=== PATIENT | female | born 1995 | race Caucasian/White ===

== ENCOUNTER 2017-10-03 21:22 | Emergency (ER) | payer SELFPAY ==
[~2017-10-03] VITALS: Ht 157.5 cm; Wt 81.6 kg
[~2017-10-03 21:22] MED LIST: AZIT-21 PO
[2017-10-03 22:07] LABS: BILIRUBIN,URINE NEGATIVE (NEGATIVE); CLARITY,URINE CLEAR; COLOR,URINE YELLOW; GLUCOSE, URINE (UA) NEGATIVE (NEGATIVE); KETONES,URINE NEGATIVE (NEGATIVE); LEUKOCYTE ESTERASE ,URINE 1+ (NEGATIVE); NITRITE,URINE NEGATIVE (NEGATIVE); PH,URINE 6 (5-9); PROTEIN,URINE 1+ (NEGATIVE); UROBILINOGEN,URINE NORMAL (NORMAL)
[2017-10-03 22:09] LABS: BASOPHILS # (AUTO) 0.1 10^3/uL (0.0-0.1); BASOPHILS % (AUTO) 0 % (0-10); EOSINOPHILS # (AUTO) 0.2 10^3/uL (0.0-0.3); EOSINOPHILS % (AUTO) 1 % (0-10); HEMATOCRIT 41 % (35-52); HEMOGLOBIN 13.8 G/DL (11.5-16.0); LYMPHOCYTES # (AUTO) 3.6 X 10^3 (1.0-4.0); LYMPHOCYTES % (AUTO) 29 % (12-44); MEAN CORPUSCULAR HEMOGLOBIN 28 PG (25-34); MEAN CORPUSCULAR HGB CONC 33 G/DL (32-36); MEAN CORPUSCULAR VOLUME 84 FL (80-99); MEAN PLATELET VOLUME 11.2 FL (7.4-10.4); MONOCYTES # (AUTO) 0.4 X 10^3 (0.0-1.0); MONOCYTES % (AUTO) 3 % (0-12); NEUTROPHILS # (AUTO) 8.5 X 10^3 (1.8-7.8); NEUTROPHILS % (AUTO) 66 % (42-75); PLATELET COUNT 303 10^3/uL (130-400); RED BLOOD COUNT 4.95 10^6/uL (4.35-5.85); WHITE BLOOD COUNT 12.8 10^3/uL (4.3-11.0)
[2017-10-03 22:20] LABS: ALANINE AMINOTRANSFERASE 15 U/L (0-55); ALBUMIN 4.3 GM/DL (3.2-4.5); ALKALINE PHOSPHATASE 56 U/L (40-136); BILIRUBIN,TOTAL 0.3 MG/DL (0.1-1.0); BUN/CREATININE RATIO 17; CALCIUM 9.8 MG/DL (8.5-10.1); CARBON DIOXIDE 19 MMOL/L (21-32); CHLORIDE 104 MMOL/L (98-107); CREATININE SERUM 0.78 MG/DL (0.60-1.30); GFR ESTIMATED > 60; GLUCOSE 163 MG/DL (70-105); POTASSIUM 3.6 MMOL/L (3.6-5.0); SALICYLATE < 5.0 MG/DL (5.0-20.0); SODIUM 138 MMOL/L (135-145); TOTAL PROTEIN 7.6 GM/DL (6.4-8.2)
[2017-10-03 22:22] LABS: ACETAMINOPHEN < 10 UG/ML (10-30)
[2017-10-03 22:23] LABS: AMPHETAMINE SCREEN, URINE NEGATIVE (NEGATIVE); BARBITURATE SCREEN URINE NEGATIVE (NEGATIVE); BENZODIAZEPINES SCREEN URINE NEGATIVE (NEGATIVE); CANNABINOID SCREEN, URINE POSITIVE (NEGATIVE); COCAINE SCREEN URINE NEGATIVE (NEGATIVE); HCG,QUALITATIVE URINE NEGATIVE (NEGATIVE); METHADONE STAT NEGATIVE (NEGATIVE); METHAMPHETAMINE SCREEN URINE S NEGATIVE (NEGATIVE); OPIATE SCREEN URINE NEGATIVE (NEGATIVE); OXYCODONE STAT NEGATIVE (NEGATIVE); PROPOXYPHENE STAT NEGATIVE (NEGATIVE); TRICYCLIC ANTIDEPRESSANTS SCRE NEGATIVE (NEGATIVE)
--- NOTE | 2017-10-03 22:51 | ED Psychosocial ---
General Chief Complaint: Psych/Social Disorder Stated Complaint: MENTAL HEALTH ISSUES/PSYCH EVAL Nursing Triage Note: pt states that she has wished to "shoot herself in the head" for the last 2 weeks. States she has not carried it out because she does not have access to a gun. Pt states nothing out of the ordinary has happened but her mother states that she has had a failed relationship and a failed out of town trip. Pt states she broke up with S/O on a trip to [facility] on Sep 28. Mother states that she has difficulty living on own and she freq moves back home which is where she is living now. She does not have a mental health dr and does not take meds. Was hospitalized at 18 in [place] for similar issues and self cutting. Was on antidepressants then but was not compliant taking them and stopped them shortly after that. Source: patient, family Exam Limitations: no limitations History of Present Illness Time seen by provider: 22:39 Initial Comments 22-year-old female patient presents to the emergency department with complaints of suicidal ideation. Reports to nursing staff that she wished to "shoot herself in the head". Reports if she had access to it and she would follow through with the plan. Patient refuses to elaborate on having a plan in place. Mother states she is very concerned about the patient's safety. Reports recently breaking up with her boyfriend and moving back in with her mother. Patient does have a history of suicidal ideation and was previously on antidepressants at the age of 18. Only took them for short time. Timing/Duration: other (2 wks) Associated Symptoms: anxiety, impaired concentration, suicidal ideation Allergies and Home Medications Allergies Coded Allergies: No Known Drug Allergies (Unverified , 07/26/14) Home Medications Azithromycin 250 Mg Tab, 1 TAB PO DAILY, #4 Prescribed by: PRISCILLA NEGRETE on 07/26/14 0146 Constitutional: no symptoms reported Respiratory: no symptoms reported Cardiovascular: no symptoms reported Gastrointestinal: no symptoms reported Genitourinary: no symptoms reported Musculoskeletal: no symptoms reported Skin: no symptoms reported Psychiatric/Neurological: See HPI, Depressed, Denies Headache, Denies Numbness , Denies Paresthesia, Denies Seizure, Denies Tingling, Denies Weakness All Other Systems Reviewed Negative Unless Noted: Yes (Negative excepted noted.) Past Zaoofsw-Lkkefj-Svhums Hx Patient Social History Alcohol Use: Rarely Uses Recreational Drug Use: Yes Drug of Choice: THC Smoking Status: Current Everyday Smoker Type Used: Cigarettes 2nd Hand Smoke Exposure: No Recent Foreign Travel: No Contact w/Someone Who Travel: No Recent Infectious Disease Expo: No Physical Abuse: No Sexual Abuse: No Mistreated: No Fear: No Immunizations Up To Date Tetanus Booster (TDap): Unknown Seasonal Allergies Seasonal Allergies: No Surgeries History of Surgeries: Yes (skin and sweat glands removed from axilla and groin) Respiratory History of Respiratory Disorde: No Cardiovascular History of Cardiac Disorders: No Neurological History of Neurological Disord: No Gastrointestinal History of Gastrointestinal Di: No Musculoskeletal History of Musculoskeletal Dis: No Endocrine History of Endocrine Disorders: No Cancer History of Cancer: No Psychosocial History of Psychiatric Problem: Yes Behavioral Health Disorders: Anxiety, Depression Suicide Risk Score: 8 Integumentary History of Skin 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) Blood Transfusions History of Blood Disorders: No Reviewed Nursing Assessment Reviewed/Agree w Nursing PMH: Yes Family Medical History Significant Family History: No Pertinent Family Hx Physical Exam Vital Signs Vital Sign - Last 12Hours 10/03/17 21:28 Temp 98.1 Pulse 81 Resp 18 B/P (MAP) 130/83 (99) Pulse Ox 97 Capillary Refill : Less Than 3 Seconds General Appearance: WD/WN, no apparent distress HEENT: PERRL/EOMI, normal ENT inspection, TMs normal, pharynx normal Neck: supple, normal inspection Respiratory: lungs clear, normal breath sounds, no respiratory distress, no accessory muscle use Cardiovascular: normal peripheral pulses, regular rate, rhythm, no murmur Gastrointestinal: normal bowel sounds, non tender, soft, no organomegaly Extremities: no pedal edema, normal capillary refill Neurologic/Psychiatric: asbestos microscopist II-XII nml as tested, no motor/sensory deficits, alert, oriented x 3, depressed affect Appearance/Memory: appropriate appearance, appropriate insight, neat, no memory impairment Behavior/Eye Contact: cooperative, normal speech, avoids eye contact Thoughts/Hallucinations: normal thought pattern, no apparent hallucination Skin: normal color, warm/dry Progress/Results/Core Measures Results/Orders Lab Results Laboratory Tests Test 10/03/17 21:40 Range/Units White Blood Count 12.8 H 4.3-11.0 10^3/uL Red Blood Count 4.95 4.35-5.85 10^6/uL Hemoglobin 13.8 11.5-16.0 G/DL Hematocrit 41 35-52 % Mean Corpuscular Volume 84 80-99 FL Mean Corpuscular Hemoglobin 28 25-34 PG Mean Corpuscular Hemoglobin Concent 33 32-36 G/DL Red Cell Distribution Width 14.0 10.0-14.5 % Platelet Count 303 130-400 10^3/uL Mean Platelet Volume 11.2 H 7.4-10.4 FL Neutrophils (%) (Auto) 66 42-75 % Lymphocytes (%) (Auto) 29 12-44 % Monocytes (%) (Auto) 3 0-12 % Eosinophils (%) (Auto) 1 0-10 % Basophils (%) (Auto) 0 0-10 % Neutrophils # (Auto) 8.5 H 1.8-7.8 X 10^3 Lymphocytes # (Auto) 3.6 1.0-4.0 X 10^3 Monocytes # (Auto) 0.4 0.0-1.0 X 10^3 Eosinophils # (Auto) 0.2 0.0-0.3 10^3/uL Basophils # (Auto) 0.1 0.0-0.1 10^3/uL Urine Color YELLOW Urine Clarity CLEAR Urine pH 6 5-9 Urine Specific [place] 1.020 1.016-1.022 Urine Protein 1+ H NEGATIVE Urine Glucose (UA) NEGATIVE NEGATIVE Urine Ketones NEGATIVE NEGATIVE Urine Nitrite NEGATIVE NEGATIVE Urine Bilirubin NEGATIVE NEGATIVE Urine Urobilinogen NORMAL NORMAL MG/DL Urine Leukocyte Esterase 1+ H NEGATIVE Urine RBC (Auto) 2+ H NEGATIVE Urine RBC 5-10 H /HPF Urine WBC 2-5 /HPF Urine Squamous Epithelial Cells 10-25 H /HPF Urine Crystals NONE /LPF Urine Bacteria NONE /HPF Urine Casts NONE /LPF Urine Mucus SMALL H /LPF Urine Culture Indicated NO Urine Test NEGATIVE NEGATIVE Sodium Level 138 135-145 MMOL/L Potassium Level 3.6 3.6-5.0 MMOL/L Chloride Level 104 98-107 MMOL/L Carbon Dioxide Level 19 L 21-32 MMOL/L Anion Gap 15 H 5-14 MMOL/L Blood Urea Nitrogen 13 7-18 MG/DL Creatinine 0.78 0.60-1.30 MG/DL Estimat Glomerular Filtration Rate > 60 BUN/Creatinine Ratio 17 Glucose Level 163 H 70-105 MG/DL Calcium Level 9.8 8.5-10.1 MG/DL Total Bilirubin 0.3 0.1-1.0 MG/DL Aspartate Amino Transf (AST/SGOT) 14 5-34 U/L Alanine Aminotransferase (ALT/SGPT) 15 0-55 U/L Alkaline Phosphatase 56 40-136 U/L Total Protein 7.6 6.4-8.2 GM/DL Albumin 4.3 3.2-4.5 GM/DL [facility] Testing 0.66 0.35-4.94 UIU/ML Salicylates Level < 5.0 L 5.0-20.0 MG/DL Urine Opiates Screen NEGATIVE NEGATIVE Urine Oxycodone Screen NEGATIVE NEGATIVE Urine Methadone Screen NEGATIVE NEGATIVE Urine Propoxyphene Screen NEGATIVE NEGATIVE Acetaminophen Level < 10 L 10-30 UG/ML Urine Barbiturates Screen NEGATIVE NEGATIVE Ur Tricyclic Antidepressants Screen NEGATIVE NEGATIVE Urine Phencyclidine Screen NEGATIVE NEGATIVE Urine Amphetamines Screen NEGATIVE NEGATIVE Urine Methamphetamines Screen NEGATIVE NEGATIVE Urine Benzodiazepines Screen NEGATIVE NEGATIVE Urine Cocaine Screen NEGATIVE NEGATIVE Urine Cannabinoids Screen POSITIVE H NEGATIVE Serum Alcohol < 10 <10 MG/DL My Orders Orders - AMANDA BIGGS Ua Culture If Indicated (10/03/17 21:59) Cbc With Automated Diff (10/03/17 21:59) Comprehensive Metabolic Panel (10/03/17 21:59) Alcohol (10/03/17 21:59) Drug Screen Stat (Urine) (10/03/17 21:59) Acetaminophen (10/03/17 21:59) Salicylate (10/03/17 21:59) Ekg Tracing (10/03/17 21:59) Hcg,Qualitative Urine (10/03/17 21:59) Thyroid Analyzer (10/03/17 21:59) Vital Signs/I&O Vital Sign - Last 12Hours 10/03/17 21:28 Temp 98.1 Pulse 81 Resp 18 B/P (MAP) 130/83 (99) Pulse Ox 97 Blood Pressure Mean: 99 ECG Initial ECG Impression Date: Oct 03, 2017 Initial ECG Impression Time: 22:54 Initial ECG Rate: 90 Initial ECG Rhythm: Normal Sinus Initial ECG Intervals: Normal Initial ECG Impression: Normal Initial ECG Comparisson: No Previous ECG Available Comment reviewed with Dr. Bush. Departure Communication (Admissions) Progress Notes Laboratory findings and plan for transfer discussed with the patient. Patient verbalizes understanding and agrees with the treatment plan. Patient case discussed with Dr. Bush, he agrees with the plan of care. Impression Impression: Primary Impression: Depression with suicidal ideation Disposition: 65 XFER TO PSYCH HOSP/UNIT Condition: Stable Transfer Time Spoke to Accepting Phy: 23:[address] Vaughn graciously accepts patient to his inpatient behavioral health service. Transfer Time: 01:00 Transfer Facility: [facility] Method of Transfer: Veronika Correa Departure-Patient Inst. Referrals: NO,LOCAL PHYSICIAN (PCP/Family) Primary Care Physician AMANDA BIGGS Oct 03, 2017 22:51
[2017-10-04 01:25] VITALS: BP 105/55
== END 2017-10-04 01:25 ==
LOC: EDUNIT# 21:22 → ER 21:25
DX: R45.851 Suicidal ideations (principal); F32.9 Major depressive disorder, single episode, unspecified; F41.9 Anxiety disorder, unspecified; F12.10 Cannabis abuse, uncomplicated; F17.210 Nicotine dependence, cigarettes, uncomplicated
CPT/HCPCS: 36415; 80053; 80306; 80320; 80329; 81000; 84443; 84703; 85025; 93005

== ENCOUNTER 2019-11-08 15:00 | Inpatient (IN) | payer MEDICAID ==
[~2019-11-08] VITALS: Ht 157.5 cm; Wt 92.3 kg
[2019-11-08] VITALS (11 sets, daily range): BP systolic 120–139; BP diastolic 65–87
[2019-11-08] MEDS ORDERED: D5 LR IV SOLUTION 1,000 ML IV ONE (17:02)
[2019-11-08] MEDS: D5 LR IV SOLUTION 1,000 ML IV SCH (17:15)
[2019-11-08] MEDS ORDERED: ACYC400T PO (17:23)
[2019-11-08] MEDS ORDERED: PREN1TAB79 PO (17:23)
--- NOTE | 2019-11-08 17:23 | History & Physical-OB ---
OB - Chief Complaint & HPI Date/Time Date of Admission: Date of Admission: Date seen by a Provider: Nov 08, 2019 Time Seen by a Provider: 15:00 Chief Complaint/History OB-Reason for Admission/Chief: Onset of Labor Hx : 2 Hx Para: 0 Expected Date of Delivery: Nov 16, 2019 Gestational Age in Weeks: 38 Gestational Age in Days: 6 History of Labs A+, antibody neg, RI. HIV/hepB/RPR NR. GC/chlamydia neg. 1 hour glucola pos, 3 hour negative. GBS neg. History of HSV on acyclovir suppression. Allergies and Home Medications Allergies Coded Allergies: No Known Drug Allergies (Unverified , 07/26/14) Home Medications Acyclovir 400 Mg Tablet, 400 MG PO TID, (Reported) Vit W-Ca,Fe,FA(<1 mg) 1 Each Tablet, 1 EACH PO DAILY, (Reported) Patient Home Medication List Home Medication List Reviewed: Yes OB - History Hx of Present Ultrasounds: Normal mid trimester US Obstetrical History Hx : 2 Hx Para: 0 Hx Total # of Abortions (Spona: 1 Delivery History Hx Blood Disorders: No Patient Past Medical History PMHx: Hidradenitis suppurativa Herpes SurgHx: Abscess/sweat gland removal axilla and inguinal region Social History/Family History HIV/AIDS: No Recent Infectious Disease Expo: No Sexually Transmitted Disease: Yes (HSV) Alcohol Use: Denies Use Smoking Cessation: Current every day smoker 2nd Hand Smoke Exposure: No Immunizations Tetanus Booster (TDap): Less than 5yrs Rubella: immune RPR/VDRL: Negative GBS Status: Negative HBsAG: Negative OB - Admission Exam Physical Exam HEENT: NCAT Cervical Dilatation: 4cm Effacement: 100% Membranes: Intact Heart Rate: 140's Accelerations: Accelerations Present Decelerations: No Decelerations Short Term Variability: Present Long-Term Variability: Average (6-25) Contractions on Admission: < 5 Minutes Apart OB - Assessment/Plan/Diagnosis Assessment Assessment: active labor Admission Dx 38 weeks gestation Active labor history of herpes with no current lesions GBS negative Admission Status: Inpatient Order (span 2 midnights) Reason for Inpatient Admission: Labor, delivery and course Plan Plan: Expectant Management SAMMI KINNEY MD Nov 08, 2019 17:23
[2019-11-08] MEDS ORDERED: OXYTOCIN PRE-MIX DRIP 500 ML IV SCH (17:28)
[2019-11-08 17:46] LABS: BASOPHILS % (AUTO) 0 % (0-10); EOSINOPHILS # (AUTO) 0.1 10^3/uL (0.0-0.3); EOSINOPHILS % (AUTO) 1 % (0-10); HEMATOCRIT 35 % (35-52); HEMOGLOBIN 11.9 G/DL (11.5-16.0); LYMPHOCYTES # (AUTO) 2.7 X 10^3 (1.0-4.0); LYMPHOCYTES % (AUTO) 17 % (12-44); MEAN CORPUSCULAR HEMOGLOBIN 30 PG (25-34); MEAN CORPUSCULAR HGB CONC 34 G/DL (32-36); MEAN CORPUSCULAR VOLUME 87 FL (80-99); MEAN PLATELET VOLUME 12.2 FL (7.4-10.4); MONOCYTES # (AUTO) 1.1 X 10^3 (0.0-1.0); MONOCYTES % (AUTO) 7 % (0-12); NEUTROPHILS # (AUTO) 11.9 X 10^3 (1.8-7.8); NEUTROPHILS % (AUTO) 75 % (42-75); PLATELET COUNT 206 10^3/uL (130-400); RED CELL DISTRIBUTION WIDTH 13.8 % (10.0-14.5); WHITE BLOOD COUNT 15.9 10^3/uL (4.3-11.0)
[2019-11-08 18:21] LABS: BAND NEUTROPHILS 1 %; BASOPHILS % (MANUAL) 1 %; LYMPHOCYTES % (MANUAL) 17 %; MONOCYTES % (MANUAL) 6 %; NEUTROPHILS % (MANUAL) 75 %; RBC MORPH NORMAL
[2019-11-08] MEDS ORDERED: fentaNYL INJECTION 100 MCG/2 ML AMP ONE (18:36)
[2019-11-08] MEDS ORDERED: SUFENTA 0.6MCG/ML BUPIVA 0.125 100 ML ONE (18:53)
[2019-11-08] MEDS ORDERED: CATHETER FLUSH 10 ML SYR IV SCH (22:00)
[2019-11-09] VITALS (18 sets, daily range): BP systolic 91–156; BP diastolic 56–95
--- NOTE | 2019-11-09 00:50 | NUR ---
VE done. pt states she isn't feeling well. BP taken. See labor flow sheet. IVF bolus given. BP slowly starting to return to normal. SROM. clear fluid. No cervical change.
[2019-11-09] MEDS: D5 LR IV SOLUTION 1,000 ML IV SCH (01:58)
[2019-11-09] MEDS ORDERED: LIDOCAINE 1% INJ 20 ML 20 ML VIAL ONE (03:40)
[2019-11-09] MEDS ORDERED: MINERAL OIL CONCENTRATE 99.9% 15 ML UDC ONE (03:51)
--- NOTE | 2019-11-09 05:34 | NUR ---
Viable male infant born per spontaneous vaginal delivery. see notes. 0540-placenta delivered. Pitocin started.
[2019-11-09] MEDS: OXYTOCIN PRE-MIX DRIP 500 ML IV SCH ×2 (05:40→06:18)
--- NOTE | 2019-11-09 05:50 | NUR ---
Soeldad care done. fundus massaged. at umbilicus. Firm. small-moderate amount of bleeding noted.
--- NOTE | 2019-11-09 06:15 | NUR ---
Fundus firm. small amount of bleeding noted.
--- NOTE | 2019-11-09 06:29 | OB Labor & Delivery Record ---
Vag Delivery Note Vag Delivery Note Date of Delivery: 11/09/19 Preoperative Diagnosis: Tomi Kasper is a (24 /Para 2 / 0, Gestational Age (wks)39 Postoperative Diagnosis: Same Surgeon: SAMMI KINNEY Seed Cone Picker: Natividad Lobo [id number] Anesthesia: Epidural Delivery Type: Vacuum assisted vaginal delivery Findings: Viable male , apgars 8/9, weight 3260 Lacerations: first degree perineal Intact placenta with 3 vessel cord. Body cord x 1, no nuchal cord or shoulder dystocia Estimated Blood Loss: 350 ml Complications: None Condition: Stable Description of Procedure: The patient is a 24 year old female who presented in active labor. She was admitted and informed consent was obtained. Her labor course was unremarkable. She progressed to complete dilatation and began to push. She was then set up for delivery. Pushing was somewhat prolonged given favorable station, and s infant was near , began to have persistent bradycardia with slower return to baseline each contraction and was not delivering in spite of maternal pushing efforts, so Mity-Vac was applied, checked entire circumference to ensure no entrapped maternal tissue and pressure increased to 45 cm Hg. With the next contraction, in conjunction with maternal pushing, steady traction was applied along the access of the pelvic curve, while keeping stem perpendicular to the plane of the cup and the 's head was delivered with one maternal push/vacuum pull. The infant's head was delivered atraumatically in the OA position. The shoulders and remainder of the 's body were then delivered without difficulty. Upon delivery, the was placed on maternal abdomen. The cord was doubly clamped and cut and the infant was handed off to the pediatric staff. An intact placenta with 3-vessel cord delivered via Godwin and there was found to be minimal bleeding.~ Vigorous fundal massage was performed and the fundus was found to be firm. IV oxytocin was given. Examination of the vagina and perineum revealed a first degree perineal laceration repaired in the usual fashion with 3-0 vicryl rapide suture. Following the repair, sponge, instrument and needle counts were correct. Mom and baby were both in stable condition in the labor suite. Vitals - Labs Vital Signs - I&O Vital Signs Date Time Temp Pulse Resp B/P (MAP) Pulse Ox O2 Delivery O2 Flow Rate FiO2 11/09/19 02:15 89 18 119/80 (93) 99 11/09/19 01:45 85 18 121/80 (94) 99 11/09/19 01:15 94 18 91/56 (68) 99 11/09/19 00:45 82 18 119/78 (92) 97 11/09/19 00:15 86 18 127/69 (88) 98 11/08/19 23:45 87 20 130/87 (101) 98 11/08/19 23:15 86 20 120/66 (84) 98 11/08/19 22:45 85 20 123/65 (84) 98 11/08/19 22:15 81 20 124/69 (87) 98 11/08/19 21:45 84 20 125/85 (98) 98 11/08/19 21:15 85 20 123/75 (91) 98 11/08/19 20:45 82 20 130/77 (94) 99 11/08/19 20:15 97 20 128/71 (90) 99 11/08/19 19:45 82 20 130/74 (92) 94 11/08/19 19:15 93 20 127/74 (91) 98 11/08/19 15:20 37.1 104 20 139/81 (100) 99 Room Air Labs Laboratory Tests 11/08/19 17:15: White Blood Count 15.9H, Red Blood Count 4.02L, Hemoglobin 11.9, Hematocrit 35, Mean Corpuscular Volume 87, Mean Corpuscular Hemoglobin 30, Mean Corpuscular Hemoglobin Concent 34, Red Cell Distribution Width 13.8, Platelet Count 206, Mean Platelet Volume 12.2H, Neutrophils (%) (Auto) 75, Lymphocytes (%) (Auto) 17, Monocytes (%) (Auto) 7, Eosinophils (%) (Auto) 1, Basophils (%) (Auto) 0, Neutrophils # (Auto) 11.9H, Lymphocytes # (Auto) 2.7, Monocytes # (Auto) 1.1H, Eosinophils # (Auto) 0.1, Basophils # (Auto) 0.0, Neutrophils % (Manual) 75, Lymphocytes % (Manual) 17, Monocytes % (Manual) 6, Basophils % (Manual) 1, Band Neutrophils 1, Blood Morphology Comment NORMAL 11/08/19 17:50: SAMMI KINNEY MD Nov 09, 2019 06:29
[2019-11-09] MEDS ORDERED: WITCH HAZEL(TUCKS) 40 EA JAR TOP PRN (07:00)
[2019-11-09] MEDS ORDERED: BENZOCAINE/MENTHOL (DERMOPLAST) 60 ML CAN TP PRN (07:00)
--- NOTE | 2019-11-09 07:15 | NUR ---
report given to Nona NORWOOD
--- NOTE | 2019-11-09 08:30 | NUR ---
Pt has a skin condition. 5cm scabbed area on lt breast. no drainage no odor noted. pt finished course of antibiotics prior to this hospitalization. no c/o. Addendum: 11/09/19 at 1752 by LEAH WALKER RN Amended: Links added.
--- NOTE | 2019-11-09 09:16 | Anesthesia-Regional Post-Op ---
Regional Patient Condition Mental Status: Alert, Oriented x3 Circulation: Same as Pre-Op Headache: Absent Sensation: Full Recovery Motor Block: Absent Post Op Complications Complications None Follow Up Care/Instructions Patient Instructions None needed. Anesthesia/Patient Condition Patient is doing well, no complaints, stable vital signs, no apparent adverse anesthesia problems. No complications reported per nursing. PEDRO PABLO DA SILVA CRNA Nov 09, 2019 09:16
[2019-11-09] MEDS: PRENATAL VITAMIN 1 EA TAB PO SCH (10:05)
[2019-11-09] MEDS: DOCUSATE SODIUM 100 MG (COLACE) CAP PO SCH ×2 (10:06→21:05)
[2019-11-09] MEDS: IBUPROFEN 600 MG (MOTRIN) TAB PO SCH ×3 (10:06→23:05)
[2019-11-09] MEDS ORDERED: CATHETER FLUSH 10 ML SYR IV SCH (14:00)
[2019-11-10 04:50] VITALS: BP 121/77
[2019-11-10] MEDS: IBUPROFEN 600 MG (MOTRIN) TAB PO SCH ×2 (06:19→12:09)
[2019-11-10 06:29] LABS: BASOPHILS % (AUTO) 0 % (0-10); EOSINOPHILS # (AUTO) 0.2 10^3/uL (0.0-0.3); EOSINOPHILS % (AUTO) 1 % (0-10); HEMATOCRIT 32 % (35-52); HEMOGLOBIN 10.7 G/DL (11.5-16.0); LYMPHOCYTES # (AUTO) 2.2 X 10^3 (1.0-4.0); LYMPHOCYTES % (AUTO) 17 % (12-44); MEAN CORPUSCULAR HEMOGLOBIN 30 PG (25-34); MEAN CORPUSCULAR HGB CONC 33 G/DL (32-36); MEAN CORPUSCULAR VOLUME 89 FL (80-99); MEAN PLATELET VOLUME 12.5 FL (7.4-10.4); MONOCYTES # (AUTO) 1.1 X 10^3 (0.0-1.0); MONOCYTES % (AUTO) 8 % (0-12); NEUTROPHILS # (AUTO) 9.7 X 10^3 (1.8-7.8); NEUTROPHILS % (AUTO) 74 % (42-75); PLATELET COUNT 119 10^3/uL (130-400); RED CELL DISTRIBUTION WIDTH 13.8 % (10.0-14.5); WHITE BLOOD COUNT 13.1 10^3/uL (4.3-11.0)
--- NOTE | 2019-11-10 09:40 | NUR ---
To room for assessment, [id number] rough rounder here, will return for assessment later.
--- NOTE | 2019-11-10 09:50 | NUR ---
Dr. Edward here to see pt.
--- NOTE | 2019-11-10 10:15 | Discharge Summary ---
Discharge Summary Hospital Course Hospital Course Date of Admission: Nov 08, 2019 at 17:00 Admission Diagnosis : Family Physician/Provider: Sammi Edward MD Date of Discharge: 11/10/19 Discharge Diagnosis: s/p vacuum assisted vaginal delivery asymptomatic anemia Hospital Course: [ ] Labs and Pending Lab Test: Laboratory Tests 11/10/19 05:55: White Blood Count 13.1H, Red Blood Count 3.63L, Hemoglobin 10.7L, Hematocrit 32L , Mean Corpuscular Volume 89, Mean Corpuscular Hemoglobin 30, Mean Corpuscular Hemoglobin Concent 33, Red Cell Distribution Width 13.8, Platelet Count 119L, Mean Platelet Volume 12.5H, Neutrophils (%) (Auto) 74, Lymphocytes (%) (Auto) 17, Monocytes (%) (Auto) 8, Eosinophils (%) (Auto) 1, Basophils (%) (Auto) 0, Neutrophils # (Auto) 9.7H, Lymphocytes # (Auto) 2.2, Monocytes # (Auto) 1.1H, Eosinophils # (Auto) 0.2, Basophils # (Auto) 0.0 Home Meds Active Reported Vitamins ( Vit W-Ca,Fe,FA(<1 mg)) 1 Each Tablet 1 Each PO DAILY Acyclovir 400 Mg Tablet 400 Mg PO TID Assessment/Pt DC Instructions Follow up in 6 weeks for visit Discharge Diet: Regular Diet Activity as Tolerated: Yes (avoid strenuous acitivity x 2 weeks) Discharge Physical Examination Allergies: Coded Allergies: No Known Drug Allergies (Unverified , 07/26/14) General Appearance: No Apparent Distress Respiratory: Lungs Clear, Normal Breath Sounds Cardiovascular: Regular Rate, Rhythm, No Murmur Neurologic/Psychiatric: Alert, Normal Mood/Affect Clinical Quality Measures DVT/VTE Risk/Contraindication: Risk Factor Score Per Nursin RFS Level Per Nursing on Admit: 1=Low/No VTE PPX SAMMI EDWARD MD Nov 10, 2019 10:15
[2019-11-10] MEDS ORDERED: IBUP-844 PO (10:17)
[2019-11-10 10:25] VITALS: BP 115/80
[2019-11-10] MEDS: PRENATAL VITAMIN 1 EA TAB PO SCH (10:27)
[2019-11-10] MEDS: DOCUSATE SODIUM 100 MG (COLACE) CAP PO SCH (10:27)
--- NOTE | 2019-11-10 12:05 | NUR ---
Discharge instructions explained to pt with copy provided to pt. Pt verbalizes understanding of instructions, signs to verify. Pt notified of prescription sent to [facility] and follow up appts made. Pt verbalizes understanding. Pt denies needs or concerns at this time. Encouraged pt to call when ready for dismissal.
--- NOTE | 2019-11-10 12:45 | NUR ---
Pt ambulates off unit to private vehicle accompanied by RN, family, and infant. No s/s of distress noted.
== END 2019-11-10 12:45 | disposition home or self-care (01) | DRG 806 ==
LOC: LDRP 15:00 → WSo 15:00 → LDRP 17:00
PROVIDERS: ADMIT Family Medicine; ATTEND Family Medicine
PROC: 10D07Z6 Extraction of Products of Conception, Vacuum, Via Natural or Artificial Opening (ICD-10-PCS; principal; 2019-11-09)
PROC: 0HQ9XZZ Repair Perineum Skin, External Approach (ICD-10-PCS; 2019-11-09)
DX: O99.334 Smoking (tobacco) complicating childbirth (principal); O98.32 Other infections with a predominantly sexual mode of transmission complicating childbirth; F17.200 Nicotine dependence, unspecified, uncomplicated; O70.0 First degree perineal laceration during delivery; O90.81 Anemia of the puerperium; D64.9 Anemia, unspecified; Z37.0 Single live birth; Z3A.39 39 weeks gestation of pregnancy
CPT/HCPCS: 36415; 85007; 85025; 85027; 86780; 86850; 86900; 86901; 99212

== ENCOUNTER → 2022-05-29 | Outpatient (CLI) | payer MEDICAID ==
[~2022-05-29] VITALS: Ht 157.5 cm; Wt 101.0 kg
[~2022-05-29] MED LIST changes: +ACHD5005 PO; +ACYC400T21 PO; +IBUP-844 PO; +PREN1TAB79 PO
== END ==
LOC: PREOP 05:30
PROVIDERS: ATTEND Surgery
DX: Z01.818 Encounter for other preprocedural examination (principal); L05.91 Pilonidal cyst without abscess

== ENCOUNTER 2022-06-05 11:24 | Day surgery (SDC) | payer MEDICAID ==
[~2022-06-05] VITALS: Ht 157.5 cm; Wt 101.0 kg
[2022-06-05] VITALS (12 sets, daily range): BP systolic 91–121; BP diastolic 44–76
[~2022-06-05 11:24] MED LIST changes: -ACHD5005 PO
--- NOTE | 2022-06-05 11:48 | Progress Note-Pre Operative ---
Pre-Operative Progress Note Date of Available H&P: May 23, 2022 Date H&P Reviewed: Jun 05, 2022 Time H&P Reviewed: 11:45 History & Physical: H&P Reviewed, Patient Examed, No changes noted Pre-Operative Diagnosis: pilonidal cyst LALA HINOJOSA DO Jun 05, 2022 11:48
[2022-06-05] MEDS ORDERED: LIDOCAINE/EPI 2% 1:200,00 (XYLOCAINE) 20 ML VIAL ONE (11:56)
[2022-06-05] MEDS ORDERED: LACTATED RINGERS 1,000 ML IV PRN (12:00)
[2022-06-05] MEDS ORDERED: ceFAZolin INJECTION 2,000 MG in NS (IVPB) 50 ML IV SCH (12:00)
[2022-06-05] MEDS ORDERED: ceFAZolin 2 GM IV Premixed 50 ML IV SCH (12:15)
[2022-06-05] MEDS ORDERED: ROCURONIUM 50 MG/5 ML (ZEMURON) VIAL IV ONE (12:16)
[2022-06-05] MEDS ORDERED: LIDOCAINE PF 1% 5 ML (XYLOCAINE) AMP ONE (12:16)
[2022-06-05] MEDS ORDERED: fentaNYL INJ 100 MCG/2 ML AMP ONE (12:16)
[2022-06-05] MEDS ORDERED: MIDAZOLAM 2 MG/2 ML (VERSED) VIAL ONE (12:16)
[2022-06-05] MEDS ORDERED: ONDANSETRON 4 MG/2 ML (SDV) Z0FRAN ONE (12:16)
[2022-06-05] MEDS ORDERED: proPOfol 200 MG/20 ML (DIPRIVAN) VIAL IV ONE (12:16)
[2022-06-05] MEDS ORDERED: LIDOCAINE/EPI 2% 1:200,00 (XYLOCAINE) 10 ML VIAL INJ ONE (13:08)
[2022-06-05] MEDS ORDERED: GLYCOPYRROLATE 0.2 MG/ML (ROBINUL) 2 ML VIAL ONE (13:18)
[2022-06-05] MEDS ORDERED: NEOSTIGMINE (BLOXIVERZ ) 1 MG/1ML 10 ML VIAL ONE (13:18)
[2022-06-05] MEDS ORDERED: SEVOFLURANE (ULTANE) 15 ML INHAL SOLN ONE (13:19)
--- NOTE | 2022-06-05 13:19 | Progress Note-Post Operative ---
Post-Operative Progess Note Surgeon (s)/Senior Web Designer (s) Surgeon LALA HINOJOSA DO Senior Web Designer: JASON Diaz Pre-Operative Diagnosis pilonidal cyst Post-Operative Diagnosis same (large with long tract) Procedure & Operative Findings Date of Procedure 06/05/22 Procedure Performed/Findings Exc pilonidal cyst with packing Anesthesia Type GET Estimated Blood Loss Estimated blood loss (mL): less than 10ml Specimens/Packing Specimens Removed pilonidal cyst LALA HINOJOSA DO Jun 05, 2022 13:19
[2022-06-05] MEDS ORDERED: ACHD5005 PO (13:20)
--- NOTE | 2022-06-05 13:21 | Discharge Inst-Surgical ---
Discharge Inst-Surgical Depart Medication/Instructions New, Converted or Re-Newed RX: Transmitted to Pharmacy Patient Instructions Follow up Appt: Make appointment for 1 week. [phone] Instructions: May shower in 24 hours, no tub bath or soaking. Use incentive spirometer at home as directed. No Smoking Skin/Wound Care: May remove bandages in am. You need to change packing daily, can come to the office for help. Symptoms to Report: Appetite Changes, Extremity Discoloration, Numbness/Tingling, Swelling Increased, Bleeding Excessive, Eyesight Changes, Pain Increased, Urine Color Change, Constipation(Persistent), Fever over 101 degree F, Pain/Pressure in chest, Urinating Difficulty, Cough Up/Vomit Blood, Heart Beat Irreg/Pounding, Pain/Pressure in jaw, Cramps in feet or legs, Lightheadedness, Pain/Pressure in shoulder, Diarrhea(Persistent), Memory Changes Suddenly, Questions/Concerns, Weight gain consecutive days, Dizziness/Fainting, Nausea/Vomiting, Shortness of Breath, Weight gain over 2 pounds If questions or concerns contact your physician Or seek help at emergency department. Activity Activity Instructions: Avoid Stress to Incision Driving Instructions: No Driving/Refer to Dr. Hong Discharge Diet: No Restrictions Diet After 24 Hours: Clear Liquid if Nauseous If Any Problems/Questions/Issu: Contact Your Physician, Go to Emergency Room Skin/Wound Care Infection Signs and Symptoms: Increased Redness, Foul Odor of Wound, Increased Drainage, Skin Itchy or Has a Rash, Increased Swelling, Temperature Above 101 F Wound Care Comment: iodophor packing daily Bathing Instructions: LALA Gary DO Jun 05, 2022 13:21
[2022-06-05] MEDS ORDERED: HYDROmorphone 2 MG/ML VIAL (DILAUDID) IV ONE (13:45)
[2022-06-05] MEDS ORDERED: morphine INJ 10 MG/ML 1ML (SYR OR VIAL) IVP ONE (13:45)
[2022-06-05] MEDS ORDERED: PROMETHAZINE INJ 25 MG/ML (PHENERGAN) AMP IVP ONE (13:45)
[2022-06-05] MEDS ORDERED: fentaNYL INJ 100 MCG/2 ML AMP IVP ONE (13:45)
[2022-06-05] MEDS ORDERED: MEPERIDINE (DEMEROL) INJ 50 MG/ML IVP ONE (13:45)
[2022-06-05] MEDS ORDERED: ONDANSETRON 4 MG/2 ML (SDV) Z0FRAN IVP PRN (13:45)
--- NOTE | 2022-06-05 14:33 | Anesthesia-General Post-Op ---
General Patient Condition Mental Status/LOC: Same as Preop Cardiovascular: Satisfactory Nausea/Vomiting: Absent Respiratory: Satisfactory Pain: Controlled Complications: Absent Post Op Complications Complications None Follow Up Care/Instructions Patient Instructions None needed. Anesthesia/Patient Condition Patient Condition Patient is doing well, no complaints, stable vital signs, no apparent adverse anesthesia problems. No complications reported per nursing. CHU PURI CRNA Jun 05, 2022 14:33
--- NOTE | 2022-06-06 02:30 | OPERATIVE REPORT ---
DATE OF SERVICE: 06/05/2022 PREOPERATIVE DIAGNOSIS: Pilonidal cyst. POSTOPERATIVE DIAGNOSES: Large pilonidal cyst with tract. SURGEON: Benny Hernandez DO PRINTING MACHINE OPERATOR TAPE RULES: Aydin Villa MS4. ANESTHESIA: General endotracheal tube. SPECIMEN: Pilonidal cyst. BLOOD LOSS: Less than 15 mL. FLUIDS: Per anesthesia. POSTOPERATIVE CONDITION: Stable. INDICATION FOR PROCEDURE: The patient is a 27-year-old female, who has a pilonidal abscess. It has not gone away and when I examined her, noted 2 areas, told her that this will be a large pilonidal cyst. FINDINGS: The patient had a very large pilonidal cyst with tract and a lot of necrotic and inflammatory tissue with changes. PROCEDURE NOTE: After informed consent was obtained, the patient was brought to the operating room. She was intubated and placed on the table in prone position, sterilely prepped and draped in normal fashion. She had in the gluteal crease. She had 2 spots, one just above the gluteal crease and one midway down, but above the rectum, this was larger. I elected to do an elliptical incision and the incision was about 9 cm long and only about a centimeter wide, but once opened, it opened a 4.5 cm. Infiltrated this area with local. Then, made an incision with #15 blade, carried down through skin and subcutaneous tissue, then deepened down to subcutaneous tissue with Bovie electrocautery, going around the pilonidal abscess and inflammatory necrotic tissue, taking all of the bad tissue out. Again, once this opened up. It was about 4.5 cm wide x 9 cm long. Removed all of the pilonidal cyst tissue. At this point, copiously irrigated with normal saline. Hemostasis was obtained using Bovie electrocautery and then elected to pack with 1-inch iodoform packing, packed this, placed ABD and then dressing. The patient tolerated the procedure. She was transferred to recovery room in stable condition. Sponge, instrument and needle count correct at the end of the case. Job ID: [id number] DocumentID: [id number] Dictated Date: 06/05/2022 17:11:22 Machine Cleaner Date: 06/06/2022 02:30:28 Dictated By: BENNY HERNANDEZ DO [facility]
== END 2022-06-05 15:35 | disposition home or self-care (01) ==
LOC: SDC 11:24
PROVIDERS: ATTEND Surgery
DX: L05.91 Pilonidal cyst without abscess (principal); F17.210 Nicotine dependence, cigarettes, uncomplicated
CPT/HCPCS: 84703; 87081